=== PATIENT | male | born 1975 | race Caucasian/White ===

== ENCOUNTER 2022-06-14 10:45 | Day surgery (SDC) | payer OTHER ==
[~2022-06-14] VITALS: Ht 188 cm; Wt 113.4 kg
[~2022-06-14 10:45] MED LIST: CEFAZOLIN SOD 1 GM in D5W 50 ML IV ONE
[2022-06-14] MEDS ORDERED: METOCLOPRAMIDE HCL 10 MG/2 ML VIAL IVP PRN (16:30)
[2022-06-14] MEDS ORDERED: ONDANSETRON HCL 4 MG/2 ML VIAL IVP PRN ×2 (16:30→23:00)
[2022-06-14] MEDS ORDERED: fentaNYL CITRATE/PF 100 MCG/2 ML AMP IVP PRN ×2 (16:30)
[2022-06-14] MEDS ORDERED: BUPIVACAINE /PF 0.25% 30 ML VIAL INJ ONE (18:00)
[2022-06-14] MEDS ORDERED: SEVOFLURANE 15 MIN GAS INH ONE (18:00)
[2022-06-14] MEDS ORDERED: MIDAZOLAM HCL 2 MG/2 ML VIAL (VERSED) ONE (18:00)
[2022-06-14] MEDS ORDERED: NS IRRIG SOLN 1000 ML IR ONE (18:00)
[2022-06-14] MEDS ORDERED: ONDANSETRON HCL 4 MG/2 ML VIAL ONE (18:00)
[2022-06-14] MEDS ORDERED: PROPOFOL 200MG/ 20ML VIAL (DIPRIVAN) IV ONE (18:00)
[2022-06-14] MEDS ORDERED: fentaNYL CITRATE/PF 100 MCG/2 ML AMP ONE ×2 (18:00→20:50)
[2022-06-14] MEDS ORDERED: ROCURONIUM BROMIDE 10 MG/ML (ZEMURON) ONE (18:00)
[2022-06-14] MEDS ORDERED: LR 1,000 ML IV.SOLN IV ONE (18:00)
[2022-06-14] MEDS ORDERED: BUPIVACAINE LIPOSOME/PF 266 MG/20 ML VIAL INFIL ONE (19:48)
--- NOTE | 2022-06-14 21:30 | NUR ---
ADMISSION NOTE Received patient from PACU via gurney. Patient admitted with diagnosis of INGUINAL HERNIA REPAIR . Patient is awake, alert, oriented X 4. Patient oriented to hospital room, call light, toileting, pain management and safety-teach back done. Patient informed that I will be HIS nurse and that their room number is [id number]. Personal belongings checked and Belongings List documented. Call light within reach.
[2022-06-14] MEDS ORDERED: HYDROmorphone 1 MG/ML INJ. CARTRIDGE IVP PRN (23:00)
[2022-06-14] MEDS ORDERED: IBUPROFEN 800 MG TABLET PO PRN (23:00)
[2022-06-14] MEDS ORDERED: ACETAMINOPHEN 500 MG TABLET PO PRN (23:00)
[2022-06-14 23:14] VITALS: BP_SYST 115
[2022-06-15] VITALS: BP_SYST 132
--- NOTE | 2022-06-15 | NUR ---
NO CHANGES NOTED FROM PREVIOUS ASSESSMENT, WILL CONTINUE TO MONITOR.
[2022-06-15 01:19] VITALS: BP_SYST 140
[2022-06-15] MEDS: HYDROcodone/ACETAMIN 5-325 MG TAB (NORCO/ VICODIN) PO PRN ×2 (01:32→12:35)
[2022-06-15] MEDS ORDERED: GABAPENTIN 300 MG CAPSULE PO SCH (06:00)
--- NOTE | 2022-06-15 06:54 | NUR ---
PT RESTING COMFORTABLY IN BED, NO S/S OF DISTRESS NOTED, REPOSITIONS SELF PER COMFORT, WILL CONTINUE TO MONITOR.
[2022-06-15 08:00] VITALS: BP_SYST 131
[2022-06-15 12:00] VITALS: BP_SYST 128
[2022-06-15 16:00] VITALS: BP_SYST 125
[2022-06-15 17:14] VITALS: BP_SYST 128
== END 2022-06-15 18:00 | disposition home or self-care (01) ==
LOC: SDS 10:45 → SMU 11:08 → SDS 06-15 18:00
PROVIDERS: ATTEND Surgery
DX: K40.90 Unilateral inguinal hernia, without obstruction or gangrene, not specified as recurrent (principal); I10 Essential (primary) hypertension; Z20.822 Contact with and (suspected) exposure to COVID-19
CPT/HCPCS: 49650; 36415; 87426; C9290; J3490; J0690; J3465; J2405; J2704; J3010; J7060; J7120; C1727; C1781